=== PATIENT | female | born 1955 | race Caucasian/White ===

== ENCOUNTER 2016-04-01 17:08 | Emergency (ER) | payer BC ==
[2016-04-01 17:26] VITALS: BP 123/70
[2016-04-01] MEDS ORDERED: Acetaminophen TAB* 325 MG PO ONE (17:42)
--- NOTE | 2016-04-01 17:51 | UC ---
Minor Trauma HPI - HPI Summary HPI Summary: Pt states she slipped on ice and fell striking the left side of her face yesterday. Today it is with increased swelling, redness and ?looking infected. Denies LOC. No RIOS, no V, no neck pain. Not on anticoagulants or ASA. Had epistaxis yest, resolved, not sure which nostril, or if both. - History of Current Complaint Chief Complaint: UCEye Stated Complaint: FACIAL INJURY PT FELL Time Seen by Provider: 04/01/16 17:34 Hx Obtained From: Patient Onset/Duration: Sudden Onset, Lasting Days, Still Present Onset Of Pain: Post Accident Severity Initially: Moderate Severity Currently: Moderate Pain Intensity: 0 Pain Scale Used: 0-10 Numeric Mechanism Of Injury: Fall From A Standing Position Aggravating Factor(s): Nothing Alleviating Factor(s): Nothing Associated Signs And Symptoms: Positive: Ecchymosis, Swelling Related History: Negative: Anticoagulants - Risk Factors Penetrating Injury Risk Factors: Negative - Allergies/Home Medications Allergies/Adverse Reactions: Allergies Allergy/AdvReac Type Severity Reaction Status Date / Time No Known Allergies Allergy Verified 04/01/16 17:18 Home Medications: Home Medications Escitalopram Oxalate [Lexapro] 10 mg PO 04/01/16 [History] Naproxen Sodium 220 mg PO 04/01/16 [History] Onabotulinimtoxina 100 UNITS* [Botox 100 UNITS*] 04/01/16 [History] PMH/Surg Hx/FS Hx/Imm Hx Previously Healthy: No - cervical dystonia - Surgical History Surgical History: Yes Surgery Procedure, Year, and Place: tubal ligation. tonsillectomy. hysterectomy - Family History Known Family History: Positive: Hypertension - Social History Alcohol Use: None Substance Use Type: None Smoking Status (MU): Never Smoked Tobacco - Immunization History Most Recent Influenza Vaccination: 2013 Review of Systems Constitutional: Negative Skin: Bruising, Other - abrasions, swelling Eyes: Negative ENT: Negative Respiratory: Negative Cardiovascular: Negative Gastrointestinal: Negative Genitourinary: Negative Motor: Negative Neurovascular: Negative Musculoskeletal: Negative Neurological: Headache Psychological: Negative All Other Systems Reviewed And Are Negative: Yes Physical Exam Triage Information Reviewed: Yes Appearance: Well-Appearing, No Pain Distress, Well-Nourished Vital Signs: Initial Vital Signs Temp 98.7 F 04/01/16 17:19 Pulse 82 04/01/16 17:19 Resp 18 04/01/16 17:19 BP 123/70 04/01/16 17:19 Pulse Ox 99 04/01/16 17:19 Vital Signs Reviewed: Yes Eyes: Positive: Conjunctiva Clear, Other: - PERRL EOMI, swelling left infraorbital ENT: Positive: Pharyngeal erythema, TMs normal, Other: - no bony tenderness of orbit. no septal hematoma Neck: Positive: Supple, Nontender Respiratory: Positive: No respiratory distress Cardiovascular: Positive: RRR, Pulses Normal, Brisk Capillary Refill Musculoskeletal: Positive: Strength Intact, ROM Intact Neurological: Positive: Alert, Muscle Tone Normal Psychological Exam: Normal Skin: Positive: Other - abrasions, left orbit, nasal bridge Minor Trauma Course/Dx - Differential Dx/Diagnosis Differential Diagnosis/HQI/PQRI: Abrasion(s), Contusion(s), Fracture Provider Diagnoses: facial abrasions and contusions with cellulitis Discharge - Discharge Plan Condition: Stable Disposition: HOME Prescriptions: Cephalexin CAP* [Keflex 500 CAP*] 500 mg PO QID #37 cap Patient Education Materials: Cellulitis (ED), Black Eye (ED), Nasal Contusion ( ED) Referrals: Gayle Allison MD [Primary Care Provider] -
[2016-04-01] MEDS ORDERED: Cephalexin CAP* 500 MG PO ONE ×2 (18:02→18:37)
--- NOTE | 2016-04-01 18:20 | RAD ---
HISTORY: Facial trauma, left-sided face COMPARISONS: None TECHNIQUE: Multiple contiguous axial CT scans were obtained of the face without intravenous contrast, with coronal and sagittal multiplanar reformations. FINDINGS: BONES: There is no displaced fracture or dislocation. The orbital rim is intact. The zygomatic arch is intact. The pterygoid plates are intact. 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 Degenerative changes are noted of the cervical spine. ORBITS: The globes are round. The optic nerves are symmetric. The extraocular musculature is normal. There is no post septal or intraconal inflammatory change. There is no retrobulbar hematoma. PARANASAL SINUSES: The paranasal sinuses are clear. BRAIN AND SOFT TISSUE: Unremarkable. OTHER: None. IMPRESSION: DEGENERATIVE CHANGES. NO FACIAL FRACTURE.
== END 2016-04-01 18:53 | disposition home or self-care (01) ==
LOC: UCCORT 17:08
DX: S00.81XA Abrasion of other part of head, initial encounter (principal); S00.83XA Contusion of other part of head, initial encounter; W00.0XXA Fall on same level due to ice and snow, initial encounter; Y93.9 Activity, unspecified; Y92.9 Unspecified place or not applicable; L03.211 Cellulitis of face
CPT/HCPCS: 70486; 99213; A9270-GY; G0463

== ENCOUNTER 2016-07-03 17:16 | Emergency (ER) | payer BC ==
[2016-07-03 17:30] VITALS: BP 137/66
[2016-07-03] MEDS ORDERED: Albuterol/Ipratropium NEB.SOL* Albuterol 2.5 MG/Ipratropium 0.5 MG 3 ML INH ONE (17:34)
--- NOTE | 2016-07-03 18:36 | UC ---
Throat Pain/Nasal Mazin HPI - HPI Summary HPI Summary: BILATERAL EAR FULLNESS, POST NASAL DRIP, SORE THROAT COUGH. ONE WEEK. NO FEVER. - History of Current Complaint Chief Complaint: UCRespiratory Stated Complaint: SORE THROAT Time Seen by Provider: 07/03/16 17:23 Hx Obtained From: Patient Onset/Duration: Gradual Onset, Lasting Weeks, Still Present Severity: Moderate Cough: Nonproductive Associated Signs & Symptoms: Positive: Wheezing, Hoarseness, Sinus Discomfort, Nasal Discharge - Epiglottits Risk Factors Epiglottis Risk Factors: Negative - Allergies/Home Medications Allergies/Adverse Reactions: Allergies Allergy/AdvReac Type Severity Reaction Status Date / Time No Known Allergies Allergy Verified 07/03/16 17:23 Home Medications: Home Medications Cholecalciferol TAB* [Vitamin D TAB*] 1,000 unit PO DAILY 07/03/16 [History Confirmed 07/03/16] Vitamin E 100 unit PO DAILY 07/03/16 [History Confirmed 07/03/16] PMH/Surg Hx/FS Hx/Imm Hx Previously Healthy: Yes Endocrine History Of: Denies: Diabetes, Thyroid Disease Cardiovascular History Of: Denies: Cardiac Disorders, Hypertension Respiratory History Of: Denies: Asthma - Surgical History Surgical History: Yes Surgery Procedure, Year, and Place: tubal ligation. tonsillectomy. hysterectomy - Family History Known Family History: Positive: Hypertension - Social History Lives: With Family Alcohol Use: None Substance Use Type: None Smoking Status (MU): Never Smoked Tobacco - Immunization History Most Recent Influenza Vaccination: 2013 Review of Systems Constitutional: Negative Skin: Negative Eyes: Negative ENT: Sore Throat, Ear Ache, Nasal Discharge Respiratory: Cough Cardiovascular: Negative Gastrointestinal: Negative Genitourinary: Negative Motor: Negative Neurovascular: Negative Musculoskeletal: Negative Neurological: Negative Psychological: Negative All Other Systems Reviewed And Are Negative: Yes Physical Exam Triage Information Reviewed: Yes Appearance: Well-Appearing, No Pain Distress, Well-Nourished Vital Signs: Initial Vital Signs Temp 98.1 F 07/03/16 17:26 Pulse 74 07/03/16 17:26 Resp 16 07/03/16 17:26 BP 137/66 07/03/16 17:26 Pulse Ox 99 07/03/16 17:26 Vital Signs Reviewed: Yes Eye Exam: Normal ENT: Positive: Hearing grossly normal, TM bulging, TM dull Dental Exam: Normal Neck exam: Normal Neck: Positive: Supple, Nontender, No Lymphadenopathy Respiratory: Positive: Chest non-tender, Normal breath sounds, No respiratory distress, No accessory muscle use, Wheezing Cardiovascular Exam: Normal Cardiovascular: Positive: RRR, No Murmur, Pulses Normal Abdominal Exam: Normal Musculoskeletal Exam: Normal Musculoskeletal: Positive: Strength Intact, ROM Intact Neurological Exam: Normal Psychological Exam: Normal Skin Exam: Normal Throat Pain/Nasal Course/Dx - Differential Dx/Diagnosis Differential Diagnosis/HQI/PQRI: Pharyngitis, Sinusitis, URI Provider Diagnoses: SINUSITIS. BRONCHITIS Discharge - Discharge Plan Condition: Stable Disposition: HOME Prescriptions: Albuterol HFA INHALER* [Ventolin HFA Inhaler*] 1 - 2 puff INH Q6H PRN #1 mdi PRN Reason: Wheezing Amoxicillin/Clavulanate TAB* [Augmentin TAB 875*] 875 mg PO BID #20 tab Patient Education Materials: Sinusitis (ED), Acute Bronchitis (ED), Bronchospasm (ED) Referrals: Gayle Allison MD [Primary Care Provider] -
== END 2016-07-03 18:32 | disposition home or self-care (01) ==
LOC: UCCORT 17:16
DX: J32.9 Chronic sinusitis, unspecified (principal); J40 Bronchitis, not specified as acute or chronic
CPT/HCPCS: 99213; A9270-GY; G0463

== ENCOUNTER 2017-05-01 09:32 | Emergency (ER) | payer BC ==
[2017-05-01 10:35] VITALS: BP 132/68
--- NOTE | 2017-05-01 11:40 | RAD ---
INDICATION: Cough and shortness of breath. COMPARISON: Comparison is made with a prior study from March 15, 2014. TECHNIQUE: Dual-energy PA and lateral views of the chest were obtained. FINDINGS: The heart is within normal limits in size. Mediastinal and hilar contours appear within normal limits. The patient's hair braid projects over the left upper lobe. The lungs are clear. No pleural effusion is seen. IMPRESSION: NO EVIDENCE FOR ACTIVE CARDIOPULMONARY DISEASE.
--- NOTE | 2017-05-01 11:41 | UC ---
Respiratory Complaint HPI - HPI Summary HPI Summary: Pt presents with c/o cough, sob with exertion, chest congestion an d"burning" in chest with cough X 1 week. - History of Current Complaint Chief Complaint: UCRespiratory Stated Complaint: COUGH, COLD CHILLS Time Seen by Provider: 05/01/17 10:41 Hx Obtained From: Patient ?: No Onset/Duration: Sudden Onset, Lasting Days - 7 Timing: Constant Severity Initially: Mild Severity Currently: Mild Pain Intensity: 0 Character: Cough: Nonproductive Aggravating Factors: Exertion, Deep Breaths, Recumbent Position Alleviating Factors: Nothing Associated Signs And Symptoms: Positive: URI, Nasal Congestion - Risk Factors Pulmonary Embolism Risk Factors: Negative Cardiac Risk Factors: Negative Pseudomonas Risk Factors: Negative Tuberculosis Risk Factors: Negative - Allergies/Home Medications Allergies/Adverse Reactions: Allergies Allergy/AdvReac Type Severity Reaction Status Date / Time No Known Allergies Allergy Verified 05/01/17 10:31 PMH/Surg Hx/FS Hx/Imm Hx Previously Healthy: Yes - Surgical History Surgical History: Yes Surgery Procedure, Year, and Place: tubal ligation. tonsillectomy. hysterectomy - Family History Known Family History: Positive: Hypertension - Social History Occupation: Employed Full-time Lives: With Family Alcohol Use: None Substance Use Type: None Smoking Status (MU): Never Smoked Tobacco Have You Smoked in the Last Year: No - Immunization History Most Recent Influenza Vaccination: 2013 Review of Systems Constitutional: Fatigue Skin: Negative Eyes: Negative ENT: Sinus Congestion Respiratory: Shortness Of Breath - with exertion, Cough Cardiovascular: Chest Pain - with cough Gastrointestinal: Negative Genitourinary: Negative Motor: Negative Neurovascular: Negative Musculoskeletal: Negative Neurological: Negative Psychological: Negative Is Patient Immunocompromised?: No All Other Systems Reviewed And Are Negative: Yes Physical Exam Triage Information Reviewed: Yes Appearance: Ill-Appearing, Obese Vital Signs: Initial Vital Signs Temp 98.8 F 05/01/17 10:30 Pulse 87 05/01/17 10:30 Resp 15 05/01/17 10:30 BP 132/68 05/01/17 10:30 Pulse Ox 98 05/01/17 10:30 Vital Signs Reviewed: Yes Eye Exam: Normal ENT: Positive: Nasal congestion Dental Exam: Normal Neck exam: Normal Respiratory Exam: Other Respiratory: Positive: Decreased breath sounds, Wheezing Cardiovascular Exam: Normal Musculoskeletal Exam: Normal Neurological Exam: Normal Neurological: Positive: Other: - essential tremor, head Psychological Exam: Normal Skin Exam: Normal UC Diagnostic Evaluation - Laboratory O2 Sat by Pulse Oximetry: 98 Respiratory Course/Dx - Differential Dx/Diagnosis Differential Diagnosis/HQI/PQRI: Bronchitis, CHF, Exacerbation Of COPD Provider Diagnoses: Bronchitis Discharge - Sign-Out/Discharge Documenting (check all that apply): Discharge - Discharge Plan Condition: Stable Disposition: HOME Prescriptions: Benzonatate CAP* [Tessalon 100 MG CAP*] 100 mg PO Q8H PRN #30 cap PRN Reason: Cough DOXYcycline CAP(*) [DOXYcycline 100MG CAP(*)] 100 mg PO Q12H #20 cap predniSONE TAB* [Deltasone TAB*] 20 mg PO DAILY #4 tab Patient Education Materials: Acute Bronchitis (ED) Forms: *Work Release Referrals: Gayle Allison MD [Primary Care Provider] - If Needed Additional Instructions: Please follow up with your PCP or return to clinic as needed. - Billing Disposition and Condition Condition: STABLE Disposition: HOME
== END 2017-05-01 11:53 | disposition home or self-care (01) ==
LOC: UCCORT 09:32
DX: J40 Bronchitis, not specified as acute or chronic (principal)
CPT/HCPCS: 71046; 99212; G0463